=== PATIENT | female | born 1970 | race Caucasian/White ===

== ENCOUNTER → 2024-03-19 11:25 | Outpatient (BNVA) | payer OTHER, SELFPAY | PROVIDERS: Visit Provider Student in an Organized Health Care Education/Training Program | DX: B37.0 Candidal stomatitis (principal); L98.9 Disorder of the skin and subcutaneous tissue, unspecified | CPT/HCPCS: 99204 ==

== ENCOUNTER → 2024-06-05 13:06 | Outpatient (BNVA) | payer OTHER, SELFPAY | PROVIDERS: PCP Family Medicine; Referring Provider Family Medicine; Visit Provider Student in an Organized Health Care Education/Training Program | DX: D17.9 Benign lipomatous neoplasm, unspecified (principal) | CPT/HCPCS: 99204 ==

== ENCOUNTER 2024-06-19 08:47 | Day surgery (SDC) | payer OTHER, SELFPAY ==
[2024-06-19] VITALS (12 sets, daily range): BP systolic 135–153; BP diastolic 81–95; PULSE 47–76; RESP 14–18; TEMP 36–36.5; O2SAT 94–100; BMI 40.1
--- NOTE | 2024-06-19 09:33 | ANES.PREANE2 ---
Pre-Anesthetic Assessment Height/Weight: Height 5 ft 10 in Weight 280 lb Temp Pulse Resp BP Pulse Ox O2 Del Method 96.8 F L 56 L 18 144/81 100 Room Air 06/19/24 09:14 06/19/24 09:14 06/19/24 09:14 06/19/24 09:14 06/19/24 09:14 06/19/24 09:14 Preop Diagnosis: Lipoma Operation Date: 06/19/24 10:20 Proposed Procedures p [place] [address], D17.9(Not Applicable) - Igor Sun MD Was Beta Katlyn taken within 24 hours: N/A Was Clonidine taken within 24 hours: N/A Last intake: Intake Last Liquid Date 06/19/24 Last Liquid Time 07:00 Last Solid Date 06/18/24 Last Solid Time 20:30 Social No alcohol and No tobacco Exam alert, oriented x 3, clear to auscultation bilaterally and regular rate & rhythm Airway Submandibular: within normal limits Cervical ROM: within normal limits Mallampati: Class II Dentition: full Anesthetic Plan ASA status: 3 Anesthesia: General and Choice Other: Denies prior issues with anesthesia Patient reportedly had black coffee at 7 AM History of hypertension on atenolol and amlodipine History of GERD on Protonix Denies any reflux symptoms currently METs greater than 4 Plan for general anesthesia Medications/Allergies Home Medications Medication Instructions Recorded Confirmed Last Taken Type amlodipine 10 mg tablet 10 mg PO QPM 03/19/24 06/18/24 06/18/24 History atenolol 50 mg tablet 50 mg PO QPM 03/19/24 06/18/24 06/18/24 History cyclobenzaprine 10 mg tablet 10 mg PO TID PRN Muscle Spasm 03/19/24 06/19/24 4 Months Ago History ~02/18/24 lidocaine 5 % topical patch 1 patch topical DAILY PRN pain 03/19/24 06/19/24 1 Month Ago History ~05/20/24 pantoprazole 40 mg tablet,delayed 40 mg PO DAILY 03/19/24 06/18/24 06/18/24 History release Allergies Allergy/AdvReac Type Severity Reaction Status Date / Time No Known Allergies Allergy Verified 06/18/24 16:39 [facility], [facility] Anesthesia Family History Father Heart disease Mother Heart disease Social History Smoking and tobacco/nicotine status: never used tobacco/nicotine Alcohol intake: never Data Anesthesia Cardiac Studies: No Data to Display
[2024-06-19] MEDS: sodium chloride 0.9% 1,000 ML 30 ML IV (09:39)
--- NOTE | 2024-06-19 10:17 | W.PM.OPSUD ---
Surgery/Procedure H&P Update DATE OF PROCEDURE: June 19, 2024 DATE H&P PERFORMED: 06/05/24 H&P UPDATE INFORMATION: I have reviewed H&P completed within last 30 days, I have examined patient prior to procedure and No changes to prior documentation PREOP DIAGNOSIS: Lipoma PLANNED PROCEDURE: Operation Date: 06/19/24 10:20 Proposed Procedures p [place] [address], D17.9(Not Applicable) - Igor Sun MD
[2024-06-19] MEDS: BUPivacaine 0.25% INJ 30 mL INJECTION (10:55)
[2024-06-19] MEDS: lidocaine-epi 1% PF 1:200,000 30 mL SDV INJECTION (10:55)
[2024-06-19] MEDS: neomycin-poly-bacitracin oint 28 gm 1 APPLIC TOPICAL (11:30)
--- NOTE | 2024-06-19 13:15 | ANE.PACU2 ---
Inpatient post-anesthesia follow up: Airway intact: Yes Vital signs: Temperature 97.3 F Pulse Rate 60 Respiratory Rate 18 Blood Pressure 153/91 Pulse Oximetry 98 Oxygen Delivery Me thod Room Air Oxygen Flow Rate 6 Fraction of Inspir ed Oxygen Hydration adequate: Yes Nausea and vomiting: No Pain level: 1 Mental status: Baseline
--- NOTE | 2024-06-20 15:49 | W.PM.BPONFUL ---
Pathology: Lipoma Implant(s): None Anesthesia: General anesthesia Complications: None Brief history/preop diagnosis: 53-year-old male who presented with a dorsal lipoma. I explained the risks and benefits of proceeding with excision and he agreed to proceed. The lesion was marked in the preop area with patient's input. Full operative report: Patient was brought to the operating room table after obtaining consent. Ancef preoperatively was administered. SCDs were on and working. General anesthesia was induced. Patient was placed prone on the operating room table. The surgical site was prepped and draped in the usual sterile fashion. An incision was carried out directly over the side of the lesion. Using electrocautery I dissected around the lipoma in the subcutaneous tissues. Lipoma was excised. Size of the lipoma was about 4 x 5 cm. The cavity was irrigated. Adequate hemostasis was confirmed. I proceeded to close the defect using 3-0 Vicryl in the subcutaneous tissues. Skin was closed using 2-0 nylon in a vertical mattress fashion. Antibiotic ointment was applied. Dry gauze dressing was also applied. Patient woke up from anesthesia without any complications. Condition: Stable Dispostion: Home
== END 2024-06-19 13:15 | disposition home or self-care (01) ==
PROVIDERS: PCP Family Medicine; Visit Provider Student in an Organized Health Care Education/Training Program
PROC: (CPT 11404; principal; 2024-06-19 10:10)
DX: D17.1 Benign lipomatous neoplasm of skin and subcutaneous tissue of trunk (principal); Z82.49 Family history of ischemic heart disease and other diseases of the circulatory system; I10 Essential (primary) hypertension
CPT/HCPCS: 11404; 12032; 88304; J0690; J1100; J2250; J2405; J2704; J2710; J3010; J3490; J7030

== ENCOUNTER → 2024-06-27 11:26 | Outpatient (BNVA) | payer OTHER, SELFPAY | PROVIDERS: PCP Family Medicine; Visit Provider Student in an Organized Health Care Education/Training Program | DX: Z98.890 Other specified postprocedural states (principal) | CPT/HCPCS: 99024 ==

== ENCOUNTER 2024-06-29 20:53 | Emergency (ER) | payer OTHER, SELFPAY ==
[2024-06-29 21:07] VITALS: BP 172/80; PULSE 78; RESP 17; TEMP 36.9; O2SAT 96; BMI 40.1
[2024-06-30 02:00] VITALS: BP 129/77; PULSE 68; RESP 17; O2SAT 98
--- NOTE | 2024-06-30 03:29 | ED_ITS ---
HPI - Wound/Laceration General: Chief Complaint: Wound/Laceration Stated Complaint: back surgery incision opening up again Time Seen by Provider: 06/30/24 02:41 History of Present Illness: 53-year-old gentleman who is status post lipoma removal from his upper back. Sutures came out on Monday, and the wound opened with drainage. Patient has experienced serosanguineous drainage from the wound that seems to be getting wider. Related Data Home Medications Medication Instructions Recorded Confirmed amlodipine 10 mg tablet 10 mg PO QPM 03/19/24 06/27/24 atenolol 50 mg tablet 50 mg PO QPM 03/19/24 06/27/24 cyclobenzaprine 10 mg tablet 10 mg PO TID PRN Muscle Spasm 03/19/24 06/27/24 lidocaine 5 % topical patch 1 patch topical DAILY PRN pain 03/19/24 06/27/24 pantoprazole 40 mg tablet,delayed 40 mg PO DAILY 03/19/24 06/27/24 release Previous Rx's Medication Instructions Recorded doxycycline hyclate 100 mg tablet 100 mg PO BID 7 days #14 tabs 06/30/24 Allergies Allergy/AdvReac Type Severity Reaction Status Date / Time No Known Allergies Allergy Verified 06/29/24 21:14 PFS ED PFSH: Family History Father Heart disease Mother Heart disease Social History Smoking and tobacco/nicotine status: never used tobacco/nicotine Alcohol intake: never Physical Exam Const: COMMON NORMALS: no acute distress GENERAL APPEARANCE: cooperative; not ill appearing and not frail appearing HENMT: COMMON NORMALS: normocephalic, atraumatic and Normal external nose present HEAD & SCALP: normocephalic and atraumatic FACE & SINUS: normal facial exam and face symmetric NOSE: Normal external nose present Eye: COMMON NORMALS: Equal, round and reactive pupils present and EOMs intact bilaterally PUPIL: Yes Equal, round and reactive pupils present Chest: CHEST: Yes Symmetrical chest wall rise Resp: COMMON NORMALS: normal respiratory effort, No retractions, No use of accessory muscles and clear to auscultation bilaterally AUSCULTATION: clear to auscultation bilaterally Neuro: DIRK COMA SCALE: document GCS findings Dirk coma scale eye opening: Spontaneous Dirk coma scale verbal response: Orientated Dirk coma scale motor response: Obey commands [place] coma scale total score: 15 SENSORY EXAM: Yes extremities (intact) Psych: COMMON NORMALS: speech normal SPEECH: Yes normal speech Skin: NARRATIVE SKIN EXAM: 7 centimeter surgical incision to the le ft upper back. No Cellulitis. Wound is partially dehisced. Serious sanguineous drainage present. The Hisense is on the superior and inferior edges. No streaking. Procedures Laceration Laceration 1: Site: back Side (If applicable): left Size (cm): 7 Description: linear Depth: simple, single layer Local Anesthetic: lidocaine 1% and with epi Amount of anesthesia used (mL): 5 Pre-repair: wound explored, irrigated extensively and deep structures intact Skin layer closed with: other (lefty) Number of sutures: 3 Course Vital Signs: Vital signs: Vital Signs Temperature 98.4 F 06/29/24 21:07 Pulse Rate 89 06/30/24 03:59 Respiratory Rate 17 06/30/24 02:00 Blood Pressure 144/62 06/30/24 03:59 Pulse Oximetry 97 06/30/24 03:59 Oxygen Delivery Me thod Room Air 06/30/24 02:00 MDM - Wound/Laceration Medical Decision Making Partial wound dehiscence. The patient himself states that his surgeon told him to return to the ER if the incision opened up, ?for more sutures? if needed. Mildly odd, as we usually let these close by secondary intention after dehiscence. Nevertheless, 3 lefty placed over the area to close. Drainage has slowed. Bandaged. topical antibiotic. We'll cover them with doxycycline. close outpatient follow up with his surgeon. No radiology studies performed this visit Discharge Plan Discharge Patient Disposition: Home Clinical Impression: Surgical wound dehiscence Condition: Stable Prescriptions: New doxycycline hyclate 100 mg tablet 100 mg PO BID 7 Days Qty: 14 0RF No Action amlodipine 10 mg tablet 10 mg PO QPM atenolol 50 mg tablet 50 mg PO QPM cyclobenzaprine 10 mg tablet 10 mg PO TID PRN (Reason: Muscle Spasm) lidocaine 5 % adhesive patch,medicated 1 patch topical DAILY PRN (Reason: pain) Rx Instructions: leave on most painful area for up to 12 hrs pantoprazole 40 mg tablet,delayed release (DR/EC) 40 mg PO DAILY Discharge Orders: Discharge ED (Routine); Ordered 06/30/24 Ordered By: Jaiden Rivas Referrals: Igor Sun MD [Physician] - 1-3 days Yael Spangler MD [Primary Care Provider] - Patient Instructions: Wound Dehiscence (ED), Opioid Safety, Pain Management Activity Restrictions/Additional Instructions: You may wash with soap and running water. Do not soak. Treat with mupirocin ointment, antibiotics as directed. Call your surgeon on Monday to let them know you were seen here. They will likely want to see you. Return for any problems. Coding Level of Care Code ED Machine [employer] For Pull[employer] Over for Roby Holley
[2024-06-30] MEDS: lidocaine-epi 1% 20 mL INJ 10 ML INJECTION (03:49)
[2024-06-30] MEDS: mupirocin oint 22 gm 1 APPLIC TOPICAL (03:49)
[2024-06-30] MEDS: doxycycline 100 mg Tablet PO (03:49)
[2024-06-30 03:59] VITALS: BP 144/62; PULSE 89; O2SAT 97
== END 2024-06-30 04:01 | disposition home or self-care (01) ==
PROVIDERS: Emergency Provider Emergency Medicine; PCP Family Medicine
DX: T81.31XA Disruption of external operation (surgical) wound, not elsewhere classified, initial encounter (principal)
CPT/HCPCS: 12002; 99283

== ENCOUNTER → 2024-07-05 12:35 | Outpatient (BNVA) | payer OTHER, SELFPAY | PROVIDERS: PCP Family Medicine; Visit Provider Surgery | DX: T81.31XA Disruption of external operation (surgical) wound, not elsewhere classified, initial encounter (principal); X58.XXXA Exposure to other specified factors, initial encounter | CPT/HCPCS: 99214 ==

== ENCOUNTER → 2024-07-10 13:13 | Outpatient (BNVA) | payer OTHER, SELFPAY | PROVIDERS: PCP Family Medicine; Visit Provider Surgery | DX: T81.31XA Disruption of external operation (surgical) wound, not elsewhere classified, initial encounter (principal); X58.XXXA Exposure to other specified factors, initial encounter | CPT/HCPCS: 99213 ==

== ENCOUNTER → 2024-07-17 13:25 | Outpatient (BNVA) | payer OTHER, SELFPAY | PROVIDERS: PCP Family Medicine; Visit Provider Surgery | DX: T81.30XA Disruption of wound, unspecified, initial encounter (principal); X58.XXXA Exposure to other specified factors, initial encounter | CPT/HCPCS: 99213 ==

== ENCOUNTER → 2024-07-23 09:27 | Outpatient (BNVA) | payer OTHER, SELFPAY | PROVIDERS: PCP Family Medicine; Visit Provider Thoracic Surgery (Cardiothoracic Vascular Surgery) | DX: T81.31XD Disruption of external operation (surgical) wound, not elsewhere classified, subsequent encounter (principal); Y83.8 Other surgical procedures as the cause of abnormal reaction of the patient, or of later complication, without mention of misadventure at the time of the procedure | CPT/HCPCS: 97597; 99203; 99213 ==

== ENCOUNTER → 2024-07-24 13:09 | Outpatient (BNVA) | payer OTHER, SELFPAY | PROVIDERS: PCP Family Medicine; Visit Provider Surgery | DX: T81.30XA Disruption of wound, unspecified, initial encounter (principal); X58.XXXA Exposure to other specified factors, initial encounter | CPT/HCPCS: 99213 ==

== ENCOUNTER → 2024-07-31 10:40 | Outpatient (BNVA) | payer OTHER, SELFPAY | PROVIDERS: PCP Family Medicine; Visit Provider Thoracic Surgery (Cardiothoracic Vascular Surgery) | DX: T81.31XD Disruption of external operation (surgical) wound, not elsewhere classified, subsequent encounter (principal); Y83.8 Other surgical procedures as the cause of abnormal reaction of the patient, or of later complication, without mention of misadventure at the time of the procedure | CPT/HCPCS: 97597 ==

== ENCOUNTER → 2024-08-06 14:43 | Outpatient (BNVA) | payer OTHER, SELFPAY | PROVIDERS: PCP Family Medicine; Visit Provider Thoracic Surgery (Cardiothoracic Vascular Surgery) | DX: T81.31XD Disruption of external operation (surgical) wound, not elsewhere classified, subsequent encounter (principal); Y83.8 Other surgical procedures as the cause of abnormal reaction of the patient, or of later complication, without mention of misadventure at the time of the procedure | CPT/HCPCS: 97597; A6021 ==

== ENCOUNTER → 2024-08-20 09:46 | Outpatient (BNVA) | payer OTHER, SELFPAY | PROVIDERS: PCP Family Medicine; Visit Provider Thoracic Surgery (Cardiothoracic Vascular Surgery) | DX: Z09 Encounter for follow-up examination after completed treatment for conditions other than malignant neoplasm (principal); Z87.2 Personal history of diseases of the skin and subcutaneous tissue | CPT/HCPCS: 99212 ==

== ENCOUNTER → 2024-12-09 09:50 | Outpatient (BNVA) | payer OTHER, SELFPAY | PROVIDERS: PCP Family Medicine; Visit Provider Internal Medicine Rheumatology | DX: M05.79 Rheumatoid arthritis with rheumatoid factor of multiple sites without organ or systems involvement (principal); Z79.899 Other long term (current) drug therapy; M06.00 Rheumatoid arthritis without rheumatoid factor, unspecified site; Z71.85 Encounter for immunization safety counseling; L98.9 Disorder of the skin and subcutaneous tissue, unspecified | CPT/HCPCS: 36415; 80076; 82306; 82565; 82607; 82746; 84439; 84443; 85025; 85651; 86140; 86480; 86704; 86803; 87340; 99204 ==

== ENCOUNTER 2024-12-24 13:45 | Outpatient (CLI) | payer OTHER, SELFPAY | END 2024-12-24 13:46 | disposition home or self-care (01) | PROVIDERS: PCP Family Medicine; Visit Provider Internal Medicine Rheumatology | DX: Z79.899 Other long term (current) drug therapy (principal) | CPT/HCPCS: 36415; 83520; 86200; 86431 ==

== ENCOUNTER 2025-02-05 12:40 | Outpatient (CLI) | payer OTHER, SELFPAY ==
[2025-02-05 13:16] LABS: Basophils # 0.1 10^3/uL (0.0-0.1); Basophils % 0.7 %; Eosinophils # 0.3 10^3/uL (0.0-0.8); Eosinophils % 3.2 %; Lymphocytes # 1.8 10^3/uL (0.8-4.8); Lymphocytes % 21.7 %; Mean Corpuscular Hemoglobin 30.2 pg (27-33); Mean Corpuscular Volume 86.4 fl (82-101); Mean Platelet Volume 9.5 fL (7.4-10.4); Monocytes # 0.5 10^3/uL (0.2-0.9); Monocytes % 5.6 %; Neutrophils # 5.62 10^3/uL (1.8-7.7); Neutrophils % 68.3 %; Nucleated Red Blood Cells % 0 %; Platelet Count 265 10^3/cmm (157-399); Red Blood Count 4.86 10^6/uL (3.85-5.65); Red Cell Distribution Width 13.2 % (12.1-15.1); White Blood Count 8.23 10^3/uL (3.29-11.43)
[2025-02-05 13:19] LABS: Erythrocyte Sedimentation Rate 8 mm/hr (0-10)
[2025-02-05 13:34] LABS: Alanine Aminotransferase 14 U/L (0-41); Alkaline Phosphatase 84 U/L (40-130); Aspartate Amino Transferase 14 U/L (0-40); C Reactive Protein 6.4 mg/L (0.0-4.9); Globulin 3.2 g/dL (1.3-4.6); Glomerular Filtration Rate 100.4 mL/min (90-130); Total Bilirubin 0.5 mg/dL (0.15-1.2); Total Protein 7.2 g/dL (6.6-8.7)
== END 2025-02-05 12:41 | disposition home or self-care (01) ==
PROVIDERS: PCP Family Medicine; Visit Provider Internal Medicine Rheumatology
DX: Z79.899 Other long term (current) drug therapy (principal); M06.00 Rheumatoid arthritis without rheumatoid factor, unspecified site
CPT/HCPCS: 36415; 80076; 82565; 85025; 85651; 86140

== ENCOUNTER → 2025-05-01 11:43 | Outpatient (BNVA) | payer OTHER, SELFPAY | PROVIDERS: PCP Family Medicine; Visit Provider Internal Medicine Rheumatology | DX: M05.79 Rheumatoid arthritis with rheumatoid factor of multiple sites without organ or systems involvement (principal); Z79.899 Other long term (current) drug therapy; Z71.85 Encounter for immunization safety counseling; L98.9 Disorder of the skin and subcutaneous tissue, unspecified; K12.1 Other forms of stomatitis | CPT/HCPCS: 99215 ==

== ENCOUNTER → 2025-09-16 10:20 | Outpatient (BNVA) | payer OTHER, SELFPAY | PROVIDERS: PCP Family Medicine; Visit Provider Internal Medicine Rheumatology | DX: M05.79 Rheumatoid arthritis with rheumatoid factor of multiple sites without organ or systems involvement (principal); Z79.899 Other long term (current) drug therapy; Z71.85 Encounter for immunization safety counseling; L98.9 Disorder of the skin and subcutaneous tissue, unspecified; K12.1 Other forms of stomatitis; M10.9 Gout, unspecified; R53.82 Chronic fatigue, unspecified | CPT/HCPCS: 99214 ==